=== PATIENT | male | born 1950 | race Caucasian/White ===

== ENCOUNTER → 2020-07-31 12:37 | Outpatient (BNVA) | payer MEDICARE, SELFPAY | PROVIDERS: PCP Internal Medicine; Visit Provider Urology | DX: Z85.51 Personal history of malignant neoplasm of bladder (principal); N40.1 Benign prostatic hyperplasia with lower urinary tract symptoms; N13.8 Other obstructive and reflux uropathy; R39.12 Poor urinary stream; N52.01 Erectile dysfunction due to arterial insufficiency | CPT/HCPCS: 52000; 81002; 99214 ==

== ENCOUNTER 2020-08-07 14:35 | Outpatient (REF) | payer MEDICARE, SELFPAY ==
[2020-08-08 08:08] LABS: Urine Cytology See Pathology rpt
== END 2020-08-07 14:36 | disposition home or self-care (01) ==
LOC: HO.LNP 14:35
PROVIDERS: Visit Provider Urology
DX: C67.9 Malignant neoplasm of bladder, unspecified (principal)
CPT/HCPCS: 88112

== ENCOUNTER → 2021-02-10 14:14 | Outpatient (BNVA) | payer MEDICARE, SELFPAY | PROVIDERS: Visit Provider Urology | DX: N39.0 Urinary tract infection, site not specified (principal) | CPT/HCPCS: 51700; 99212 ==

== ENCOUNTER 2022-08-20 10:02 | Outpatient (REF) | payer OTHER, SELFPAY ==
[2022-08-20 17:11] LABS: Urine Cytology See Pathology rpt
== END 2022-08-20 10:03 | disposition home or self-care (01) ==
LOC: HO.LAB 10:02
PROVIDERS: Visit Provider Urology
DX: C67.9 Malignant neoplasm of bladder, unspecified (principal); N40.0 Benign prostatic hyperplasia without lower urinary tract symptoms
CPT/HCPCS: 52000; 88112

== ENCOUNTER 2023-08-19 08:46 | Outpatient (REF) | payer OTHER, SELFPAY ==
[2023-08-19 16:37] LABS: Urine Cytology See Pathology rpt
== END 2023-08-19 08:47 | disposition home or self-care (01) ==
LOC: HO.LAB 08:46
PROVIDERS: Visit Provider Urology
DX: C67.8 Malignant neoplasm of overlapping sites of bladder (principal); N40.1 Benign prostatic hyperplasia with lower urinary tract symptoms; N13.8 Other obstructive and reflux uropathy
CPT/HCPCS: 52000; 81003; 88112

== ENCOUNTER 2023-08-19 08:46 | Outpatient (AMB) | payer OTHER, SELFPAY ==
--- NOTE | 2023-08-19 09:00 | A.OFFVIS_ITS ---
Intake Intake Visit Reasons: Cysto Intake Note: Patient is Present for Cystoscopy Urology Med: Sildenafil Antibiotic Allergy: None Blood Thinner: Aspirin URO- G Disposable Cystoscope lot: [id number] exp:03/23/25 Allergies No Known Allergies [No Known Allergies*] Allergy (Verified 08/19/23 09:00) Medication List - Last Reconciled 08/19/23 by Jackson Evans MD acetaminophen 1,000 mg (2 x 500 mg) PO Q6H PRN aspirin (Adult Aspirin Regimen) 81 mg PO DAILY bupropion HCl 150 mg PO DAILY famotidine mg PO finasteride 5 mg PO DAILY 90 days fluoxetine 20 mg PO DAILY ibuprofen 600 mg PO TID PRN metoprolol succinate ER 25 mg PO DAILY omeprazole mg PO pantoprazole mg PO sildenafil 100 mg PO DAILY PRN simvastatin 20 mg PO BEDTIME sucralfate PO HPI HPI Comments History of Present Illness Details Mr Arredondo is a very pleasant male. He is a patient of Dr. Joyce. He is seen for the following urologic conditions. - bladder cancer - urinary retention with UTI 02/28 - lower urinary tract symptoms Yearly review for bladder cancer Clear on cysto Six month follow-up Weakness of stream Trial finasteride Cardiac bypass surgery Sep 2021 Bladder Cancer: Bladder cancer was initially diagnosed during evaluation for gross hematuria. 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 Recurrence Risk per EORTC Low Risk. Bladder cancer risk factors Organic Solvent exposure No smoking Yes Prior Cystoscopy 04/23 Negative 04/24 - mild prostate enlargement 04/25 - 3 small lesions posterior lateral wall - low risk 10/27 Neg - prostate enlargement 01/25 , Negative, 04/26 NAD, 12/26 NAD, 06/28 NAD. Prior Cytology 04/23 Inflammatory cells 04/25 atypical 12/26 NAD. Previous intravesical therapy none. Planned treatment surveillance protocol. [facility] Medical History Peptic ulcer disease Obesity Depression HTN (hypertension) Weak urinary stream Incomplete emptying of bladder Bladder cancer BPH (benign prostatic hyperplasia) Surgical History History of surgery Social History Housing: House Alcohol intake: former Patient Tobacco Use Status: Current everyday Tobacco user Tobacco use type: Cigarette Cigarettes Per Day: 4 e-Cigarette/Vaping Use: Never Used Second Hand Smoke Exposure: Yes service: No Current occupational status: employed Current occupational exposures/hazards: No Cognitive needs: No Hearing needs: No Vision needs: Yes Review of Systems Const Denies chills and Denies fever(s) Card Reports no additional complaints and Denies syncope Resp Denies cough GI Denies abdominal pain and Denies heartburn Reports as per HPI and Denies change in libido Neuro Denies syncope Psych Denies change in libido Endo Denies change in libido Physical Exam Const General: cooperative, healthy appearing, comfortable and no acute distress Orientation/consciousness: patient oriented x3 HEENT Face and sinus: Yes normal facial exam Mouth: moist mucous membranes Neck Neck: Yes normal visual inspection, Yes full ROM and Yes trachea midline Chest Chest palpation & inspection: normal inspection of the chest Resp Effort & Inspection: normal respiratory effort, able to speak in complete sentences and no respiratory distress GI Inspection: Yes normal to inspection Back/Spine/Pelvis Cervical Spine: normal cervical lordosis Thoracic/Lumbar Spine: thoracic and lumbar spine normal to inspection Skin General skin exam: no rashes or lesions noted Neuro General: patient oriented x3, gait normal, tone normal and moves all extremities Extrem General: Yes normal to inspection and Yes capillary refill normal Office Procedures Cystoscopy Consent Discussed risk and benefit or proposed procedure with the patient. Information consent for procedure given to the patient. Discussed technical aspects, risks, benefits and alternatives in full. Addressed all of the patient's questions and concerns regarding the procedure. The patient demonstrated knowledge and understanding. They wish to proceed with this procedure. Preparation The patient was prepped in the usual manner. A manager green was present and in the room. Genitalia was prepped with betadine solution in a sterile manner. Lidocaine Jelly 2% was placed into the urethra and 16Fr flexible Olympus cystoscope was inserted into the meatus after adequate lubrication. Procedure Meatus circumcised Urethra anterior and posterior urethra normal Prostatic Urethra large median lobe Bladder examination with retroflexion of cystoscope Bladder Orifices normal shape and position Bladder Capacity medium Trabeculations grade 2 Cellule Formation - Diverticulum Formation - Mucosal Erythema - Bladder Tumor - [id number] DISPOSABLE SCOPE URO-G FLEXIBLE SCOPE Procedure code (CPT) selection complete Office Meds lidocaine HCl 2 % mucosal jelly in applicator Performing Provider: Jackson Evans MD Performing Location: [facility] Administered by: Tenisha Hutson RN on 08/19/23 09:10 Dose Route Admin Location Dispensed Lot Number Expiration Date NDC Client Delivery Manager 10 mL intra-urethral 10 mL nitrofurantoin monohydrate/macrocrystals 100 mg capsule Performing Provider: Jackson Evans MD Performing Location: [facility] Administered by: Tenihsa Hutson RN on 08/19/23 09:10 Dose Route Admin Location Dispensed Lot Number Expiration Date NDC Client Delivery Manager 100 mg PO 1 cap naproxen 500 mg tablet Performing Provider: Jackson Evans MD Performing Location: [facility] Administered by: Tenisha Hutson RN on 08/19/23 09:10 Dose Route Admin Location Dispensed Lot Number Expiration Date NDC Client Delivery Manager 500 mg PO 1 tab Results AMB Urinalysis, Automated UA Leukoctes 0 Vishnu/uL Last Edit by Madeleine Trevino [facility] on 08/19/23 09:07 UA Nitrite Negative Last Edit by Madeleine Trevino [facility] on 08/19/23 09:07 UA Urobilinogen 0.2 mg/dL Last Edit by Madeleine Trevino [facility] on 08/19/23 09:0 7 UA Protein 5.5 mg/dL Last Edit by Madeleine Trevino [facility] on 08/19/23 09:07 UA pH 0 Last Edit by Madeleine Trevino [facility] on 08/19/23 09:07 UA Blood 0 Audie/uL Last Edit by Madeleine Trevino [facility] on 08/19/23 09:07 UA Specific [place] 1.010 Last Edit by KAREN Anne on 08/19/23 09: 07 UA Ketone Negative Last Edit by Madeleine Trevino [facility] on 08/19/23 09:07 UA Bilirubin 0 mg/dL Last Edit by Madeleine Trevino [facility] on 08/19/23 09:07 UA Glucose 0 mg/dL Last Edit by Madeleine Trevino [facility] on 08/19/23 09:07 Results Reviewed Results Reviewed: Laboratory Last Values Urine pH (Auto) 0 08/19/23 09:01 Specific [place] (Auto) 1.010 08/19/23 09:01 Urine Protein (Auto) 5.5 mg/dL 08/19/23 09:01 Glucose (UA)(Auto) 0 mg/dL 08/19/23 09:01 Urine Ketones (Auto) Negative 08/19/23 09:01 Urine Blood (Auto) 0 Audie/uL 08/19/23 09:01 Urine Nitrite (Auto) Negative 08/19/23 09:01 Urine Bilirubin (Auto) 0 mg/dL 08/19/23 09:01 Urine Urobilinogen (Auto) 0.2 mg/dL 08/19/23 09:01 Leukocyte Esterase (Auto) 0 Vishnu/uL 08/19/23 09:01 Assessment & Plan Assessment & Plan (1) BPH w urinary obs/LUTS: Code(s): N40.1 - Benign prostatic hyperplasia with lower urinary tract symptoms; N13.8 - Other obstructive and reflux uropathy (2) Bladder cancer: Code(s): C67.9 - Malignant neoplasm of bladder, unspecified Qualifiers: Bladder location: overlapping sites Qualified Code(s): C67.8 - Malignant neoplasm of overlapping sites of bladder Plan Trial finasteride 6 month follow-up Orders: Orders Urine Cytology Today C67.9 - Malignant neoplasm of bladder, unspecified AMB Cystoscopy Today C67.9 - Malignant neoplasm of bladder, unspecified AMB Urinalysis Automated Today Z13.9 - Encounter for screening, unspecified Medications: New finasteride 5 mg PO DAILY 90 days 90 tabs 1RF N13.8 - Other obstructive and reflux uropathy, N40.1 - Benign prostatic hyperplasia with lower urinary tract symptoms, R33.9 - Retention of urine, unspecified Patient Instructions: Imaging studies, laboratory and physical exam results were discussed and reviewed in detail. No major barriers to patient understanding were identified. An opportunity to ask questions regarding the treatment plan was provided. All questions were answered. The patient expressed understanding and agreement with the above treatment plan. The patient is aware they should contact our office by phone for worsening of their current condition or the appearance of new urologic symptoms. Compliance is encouraged with any medications and followup testing that is ordered. It is a privilege to participate in the urologic care of your patient. If you have any questions or concerns regarding treatment for the above conditions, or other urologic issues, please do not hesitate to contact me. The office telephone contact is [phone]. This note is constructed using voice recognition software. While every effort has been made to ensure accuracy hazardous waste management specialist errors may have been included. Yours sincerely, Dr Jackson Evans MD, [facility] - Urology Providers of Expert, Compassionate Care for the Genitourinary System Coding Level of Care Code Est Pt Level 4 (18561) Diagnoses BPH w urinary obs/LUTS N40.1; N13.8 Malignant neoplasm of overlapping sites of bladder C67.8 Bladder location: overlapping sites CPT Codes Cystoscopy - CPT: [id number] ([id number])
== END 2023-08-19 09:23 | disposition home or self-care (01) ==
PROVIDERS: Visit Provider Urology
DX: N40.1 Benign prostatic hyperplasia with lower urinary tract symptoms (principal); R39.12 Poor urinary stream; N13.8 Other obstructive and reflux uropathy; Z85.51 Personal history of malignant neoplasm of bladder; Z13.9 Encounter for screening, unspecified
CPT/HCPCS: 52000; 99214